=== PATIENT | male | born 1970 | race Two or more races ===

== ENCOUNTER → 2017-09-07 | Outpatient (CLI) | payer OTHER ==
--- NOTE | 2017-09-07 13:12 | RAD ---
Indication: Positive TB skin test. Time of exam 12:58 PM The heart size is normal. The lungs are clear. No infiltrates are detected. No findings to suggest TB are detected. No effusion or pneumothorax is identified. Impression: No acute abnormality is detected.
== END | disposition home or self-care (01) ==
LOC: RAD 12:38
PROVIDERS: ATTEND Family Medicine
DX: R76.11 Nonspecific reaction to tuberculin skin test without active tuberculosis (principal)
CPT/HCPCS: 71020

== ENCOUNTER → 2019-05-10 | Outpatient (CLI) | payer BC ==
--- NOTE | 2019-05-10 11:39 | CARD ---
MR#: [id number] Date of Study: 05/10/2019 Ordering Physician: ARMAAN LE, Referring Physician: ARMAAN LE Tech: Trina Sood SHANNAN APPROVED REPORT EXAM: Two-dimensional and M-mode echocardiogram with Doppler and color Doppler. Other Information Quality : Good INDICATION Murmur 2D DIMENSIONS RVDd3.4 (2.9-3.5cm)Left Atrium(2D)4.0 (1.6-4.0cm) IVSd1.1 (0.7-1.1cm)Aortic Root(2D)3.1 (2.0-3.7cm) LVDd4.8 (3.9-5.9cm)LVOT Diameter2.0 (1.8-2.4cm) PWd1.1 (0.7-1.1cm)LVDs3.1 (2.5-4.0cm) FS (%) 34.3 %SV67.4 ml LVEF(%)60.0 (>50%) Aortic Valve AoV Peak Cj.143.4cm/sAoV VTI27.6cm AO Peak GR.8.2mmHgLVOT Peak Cj.148.3cm/s AO Mean GR.4mmHgAVA (VMAX)3.17cm2 Mitral Valve MV E Hffovuhk54.7cm/sMV DECEL UYSU143cs MV A Wcqgltog35.1cm/sE/A Ratio1.2 Tricuspid Valve TR P. Gipggxen735gj/sRAP CPURSLCO7muCn TR Peak Gr.21adIwPCMU69yvRy Pulmonary Vein S1 Nnrngrnt85.0cm/sD2 Yebxolom07.1cm/s LEFT VENTRICLE The left ventricle is normal size. There is normal left ventricular wall thickness. The left ventricu lar systolic function is normal and the ejection fraction is within normal range. The Ejection Fracti on is 55-60%. There is normal LV segmental wall motion. The left ventricular diastolic function and f illing is normal for age. RIGHT VENTRICLE The right ventricle is normal size. The right ventricular systolic function is normal. ATRIA The left atrium size is normal. The right atrium size is normal. The interatrial septum is intact wit h no evidence for an atrial septal defect or patent foramen ovale as noted on 2-D or Doppler imaging. AORTIC VALVE The aortic valve is normal in structure and function. Doppler and Color Flow revealed no significant aortic regurgitation. There is no significant aortic valvular stenosis. MITRAL VALVE The mitral valve is normal in structure and function. There is no evidence of mitral valve prolapse. There is no mitral valve stenosis. Doppler and Color Flow revealed no mitral valve regurgitation note d. TRICUSPID VALVE The tricuspid valve is normal in structure and function. Doppler and Color Flow revealed mild tricusp id regurgitation. The PA pressure was estimated at 35 mmHg. There is no tricuspid valve stenosis. PULMONIC VALVE The pulmonary valve is normal in structure and function. Doppler and Color Flow revealed mild pulmoni c valvular regurgitation. There is no pulmonic valvular stenosis. GREAT VESSELS The aortic root is normal in size. The ascending aorta is normal in size. The IVC is normal in size a nd collapses >50% with inspiration. PERICARDIAL EFFUSION There is no evidence of significant pericardial effusion. Critical Notification Critical Value: No <Conclusion> The left ventricular systolic function is normal and the ejection fraction is within normal range. Th e Ejection Fraction is 55-60%. There is normal LV segmental wall motion. Doppler and Color Flow revealed mild tricuspid regurgitation. The PA pressure was estimated at 35 mmH g. Signed by : Matthew De Jesus, Electronically Approved : 05/10/2019 11:39:34
== END | disposition home or self-care (01) ==
LOC: ECHO 10:13
PROVIDERS: ATTEND Nurse Practitioner Gerontology
DX: I08.8 Other rheumatic multiple valve diseases (principal)
CPT/HCPCS: 93306

== ENCOUNTER → 2021-10-15 | Outpatient (CLI) | payer BC ==
--- NOTE | 2021-10-15 08:26 | RAD ---
INDICATION: Reason: LEFT SIDE ABD PAIN / Spl. Instructions: / History: COMPARISON: None. TECHNIQUE: Grayscale and color ultrasound images obtained through the abdomen. FINDINGS: Pancreas: Visualized portions unremarkable. Liver: Echogenic Gallbladder: No definite stones or wall thickening. Common Bile Duct: Not dilated. Right Kidney: No hydronephrosis. Left Kidney: No hydronephrosis. Spleen: Unremarkable. Aorta/IVC: Largely obscured by overlying structures IMPRESSION: * Liver is echogenic which can be seen with fatty infiltration. * No hydronephrosis Electronically signed by: Steve Delacruz MD (10/15/2021 8:23 AM) [id number]
== END ==
LOC: US 06:50
PROVIDERS: ATTEND Family Medicine
DX: R10.9 Unspecified abdominal pain (principal)
CPT/HCPCS: 76700